=== PATIENT | female | born 1970 | race Caucasian/White ===

== ENCOUNTER → 2020-01-25 11:34 | Outpatient (CLI) | payer MEDICAID, SELFPAY ==
[2020-01-25 13:29] LABS: Chloride 102 mmol/L (98-107); Potassium 4.4 mmoL/L (3.5-5.1); Sodium 137 mmol/L (136-145)
[2020-01-25 13:32] LABS: Anion Gap 9.4 mEq/L (5-15); Blood Urea Nitrogen 12 mg/dl (7-17); Carbon Dioxide 30 mmol/L (22.0-30.0); Estimated Glomerular Filt Rate 130 ml/min (>60); GFR (African American) 157 ML/MIN (>60)
[2020-01-25 13:33] LABS: Calcium 9.3 mg/dl (8.4-10.2); Glucose 196 mg/dl (74-100)
== END ==
PROVIDERS: Visit Provider Urology
DX: E78.2 Mixed hyperlipidemia (principal); I10 Essential (primary) hypertension; R00.2 Palpitations; R06.00 Dyspnea, unspecified; R07.9 Chest pain, unspecified
CPT/HCPCS: 36415; 80048

== ENCOUNTER 2020-01-27 08:27 | Day surgery (SDC) | payer MEDICAID, SELFPAY ==
[2020-01-27] VITALS (11 sets, daily range): BP systolic 116–169; BP diastolic 67–97; PULSE 60–80; RESP 12–20; TEMP 36.4; O2SAT 92–99; BMI 38.4
--- NOTE | 2020-01-27 | IR_ITS ---
APPROVED REPORT Patient Location: [facility] Hand: JOÃO Mejia RT (R) PROCEDURES Left heart catheterization Left ventriculogram Selective coronary angiogram INDICATION Abnormal stress test, Angina pectoris Informed consent was obtained prior to the procedure. COMPLICATIONS none Estimated Blood Loss: less than 10 mls TECHNIQUE One percent lidocaine used to anesthetize the right anterior aspect of the wrist. The right radial artery was accessed via the Seldinger technique. A 6 Irish sheath was placed in the right radial artery. 2.5 mg of verapamil, 800 mcg of nitroglycerin, 1mg Lidocaine and 5000 U Heparin were given through the arterial sheath. The trap catheter was also used to perform left heart catheterization, left ventriculogram and selective coronary angiogram. At the end of the procedure the sheath was removed good hemostasis was achieved using Traclet band, patient was transferred to the postop holding area in stable condition. ANGIOGRAPHIC RESULTS The left main artery Normal The left anterior descending artery Normal The circumflex artery Normal The right coronary artery Dominant normal The MIRELES ventriculogram reveals Normal 65% The left ventricular end-diastolic pressure Moderate to severely elevated at 30 mmHg IMPRESSION Normal coronary arteries Normal ejection fraction Elevated LVEDP consistent with diastolic dysfunction PLAN 1. Treatment of underlying diastolic dysfunction which is the etiology for patient's cardiac symptoms 2. Weight loss 3. Loop diuretics combined with Aldactone Electronically signed by : Alexey Collins, 01/27/2020 10:24:08
[2020-01-27 08:10] LABS: Basophils # 0.1 K/mm3 (0-0.2); Basophils % 1.5 % (0.1-2.0); Eosinophils # 0.1 K/mm3 (0.0-0.4); Hematocrit 42.8 % (37.0-47.0); Hemoglobin 11.9 g/dL (12.2-16.2); Lymphocytes # 1.7 K/mm3 (0.7-4.5); Lymphocytes % 34.7 % (10-50); Mean Corpuscular HGB Conc 27.8 g/dL (31.8-35.4); Mean Corpuscular Hemoglobin 24.6 pg (27.0-31.2); Mean Corpuscular Volume 88.5 fl (81-99); Mean Platelet Volume 10.1 fl (7.4-10.4); Monocytes # 0.2 K/mm3 (0.1-1.0); Monocytes % 4.8 % (1.7-9.3); Neutrophils # 2.7 K/mm3 (1.8-7.8); Platelet Count 288 K/mm3 (142-424); Red Blood Count 4.83 M/mm3 (4.20-5.40); Red Cell Distribution Width 15.9 % (11.5-17.5); White Blood Count 4.8 K/mm3 (4.8-10.8)
[2020-01-27 08:31] LABS: Coronavirus 19 IgG Antibody Negative (Negative); Coronavirus 19 IgM Antibody Negative (Negative)
== END 2020-01-27 13:29 | disposition home or self-care (01) ==
LOC: CATHLAB 08:30
PROVIDERS: PCP Family Medicine; Visit Provider Internal Medicine
DX: R94.39 Abnormal result of other cardiovascular function study (principal); I25.118 Atherosclerotic heart disease of native coronary artery with other forms of angina pectoris; E11.9 Type 2 diabetes mellitus without complications; Z79.84 Long term (current) use of oral hypoglycemic drugs; I10 Essential (primary) hypertension; R06.00 Dyspnea, unspecified
CPT/HCPCS: 85025; 86328; 93458; 99152; C1725; C1769; J1644; Q9967

== ENCOUNTER → 2020-09-01 14:09 | Outpatient (CLI) | payer MEDICAID, SELFPAY ==
[2020-09-01 14:58] LABS: Chloride 102 mmol/L (98-107); Sodium 138 mmol/L (136-145)
[2020-09-01 15:01] LABS: Blood Urea Nitrogen 21 mg/dl (7-17); Carbon Dioxide 29 mmol/L (22.0-30.0); Estimated Glomerular Filt Rate 88 ml/min (>60); GFR (African American) 106 ML/MIN (>60)
[2020-09-01 15:02] LABS: Calcium 9.4 mg/dl (8.4-10.2); Glucose 202 mg/dl (74-100)
== END ==
PROVIDERS: Visit Provider Physician Assistant
DX: R06.00 Dyspnea, unspecified (principal); E11.9 Type 2 diabetes mellitus without complications; E78.2 Mixed hyperlipidemia; I10 Essential (primary) hypertension; Z79.84 Long term (current) use of oral hypoglycemic drugs
CPT/HCPCS: 36415; 80048

== ENCOUNTER → 2021-03-05 12:43 | Outpatient (CLI) | payer MEDICAID, SELFPAY | PROVIDERS: PCP Family Medicine; Visit Provider Urology | DX: R06.00 Dyspnea, unspecified (principal) | CPT/HCPCS: 94060; 94726; 94729 ==